=== PATIENT | female | born 1995 | race Caucasian/White ===

== ENCOUNTER 2020-09-28 07:40 | Outpatient (CLI) | payer OTHER | END 2020-09-28 23:59 | disposition home or self-care (01) | LOC: LAB.N 07:40 | PROVIDERS: ATTEND Nurse Practitioner | DX: R07.0 Pain in throat (principal) | CPT/HCPCS: 87070; 87077 ==

== ENCOUNTER 2021-02-03 15:29 | Outpatient (CLI) | payer OTHER | END 2021-02-03 23:59 | disposition home or self-care (01) | LOC: LAB.N 15:29 | PROVIDERS: ATTEND Physician Assistant | DX: R05.2 Subacute cough (principal); Z20.822 Contact with and (suspected) exposure to COVID-19 | CPT/HCPCS: 36415; 85379 ==

== ENCOUNTER 2022-01-06 06:51 | Outpatient (CLI) | payer OTHER ==
[2022-01-06 08:06] LABS: THYROID STIMULATING HORMONE 1.72 uIU/mL (0.34-5.60)
[2022-01-06 08:08] LABS: FREE T4 (FREE THYROXINE) 0.67 ng/dL (0.58-1.64)
== END 2022-01-06 06:52 | disposition home or self-care (01) ==
LOC: LAB 06:51
PROVIDERS: ATTEND Nurse Practitioner Obstetrics & Gynecology
DX: R53.83 Other fatigue (principal)
CPT/HCPCS: 36415; 84439; 84443